=== PATIENT | female | born 1980 ===

== ENCOUNTER 2024-10-10 11:53 | Outpatient (CLI) | payer BC, SELFPAY | END 2024-10-10 11:54 | disposition home or self-care (01) | PROVIDERS: PCP Family Medicine; Visit Provider Family Medicine | DX: R53.83 Other fatigue (principal); R41.840 Attention and concentration deficit; F41.9 Anxiety disorder, unspecified; F32.A Depression, unspecified; Z76.89 Persons encountering health services in other specified circumstances | CPT/HCPCS: 80053; 80061; 82306; 84443 ==